=== PATIENT | female | born 1950 | race Two or more races ===

== ENCOUNTER 2019-01-01 10:31 | Day surgery (SDC) | payer MEDICARE, OTHER ==
[~2019-01-01] VITALS: Ht 172.7 cm; Wt 58.6 kg
[~2019-01-01 10:31] MED LIST: CLARITIN10 MG; THYR60; TRAZ50
[2019-01-01] MEDS ORDERED: LEVSOD100 (11:12)
[2019-01-01] MEDS ORDERED: PROG100 (11:12)
[2019-01-01] MEDS ORDERED: ESTR2 (11:13)
--- NOTE | 2019-01-01 12:15 | NUR ---
01/01/19 1215 Isha Araya PT UPDATED ON THE DELAY. WARM BLANKET PROVIDED. CALL LIGHT IN REACH.
== END 2019-01-01 15:13 | disposition home or self-care (01) ==
LOC: ORSCSDS 10:31
PROVIDERS: Student in an Organized Health Care Education/Training Program
PROC: 0DBN8ZX Excision of Sigmoid Colon, Via Natural or Artificial Opening Endoscopic, Diagnostic (ICD-10-PCS; principal; 2019-01-01 12:00)
PROC: 0DBK8ZX Excision of Ascending Colon, Via Natural or Artificial Opening Endoscopic, Diagnostic (ICD-10-PCS; principal; 2019-01-01 12:00)
PROC: 0DBP8ZX Excision of Rectum, Via Natural or Artificial Opening Endoscopic, Diagnostic (ICD-10-PCS; principal; 2019-01-01 12:00)
DX: K92.1 Melena (principal); D12.2 Benign neoplasm of ascending colon; D12.4 Benign neoplasm of descending colon; D12.5 Benign neoplasm of sigmoid colon; K62.1 Rectal polyp; K64.8 Other hemorrhoids; K64.4 Residual hemorrhoidal skin tags; R94.6 Abnormal results of thyroid function studies; Z79.899 Other long term (current) drug therapy
CPT/HCPCS: 88305; J2704; J7120

== ENCOUNTER 2019-01-02 21:44 | Observation (INO) | payer MEDICARE, OTHER ==
[~2019-01-02] VITALS: Ht 149.9 cm; Wt 60.4 kg
[~2019-01-02 21:44] MED LIST changes: +ESTR2; +LEVSOD100; +PROG100
[2019-01-02 22:44] LABS: BASOPHILS ABSOLUTE AUTO 0.04 K/mm3 (0.00-0.23); BASOPHILS PERCENT AUTO 0 % (0-2); EOSINOPHILS ABSOLUTE AUTO 0.16 K/mm3 (0.00-0.68); EOSINOPHILS PERCENT AUTO 1 % (0-6); Hemoglobin 14.1 g/dL (11.5-16.0); IMMATURE GRAN ABSOLUTE AUTO 0.05 K/mm3 (0.00-0.10); IMMATURE GRAN PERCENT AUTO 0 % (0-1); LYMPHOCYTES ABSOLUTE AUTO 1.77 K/mm3 (0.84-5.20); LYMPHOCYTES PERCENT AUTO 15 % (21-46); MONOCYTES PERCENT AUTO 8 % (4-13); Mean Corpuscular HGB 30.2 pg (26.0-34.0); Mean Corpuscular HGB Conc 33.6 g/dL (31.5-36.5); Mean Corpuscular Volume 90 fL (80-100); Mean Platelet Volume 10.5 fL (9.1-12.4); NEUTROPHILS ABSOLUTE AUTO 8.83 K/mm3 (1.96-9.15); NEUTROPHILS PERCENT AUTO 75 % (41-73); Platelet Count 296 K/mm3 (150-400); RDW Coefficient Variation 12.2 % (11.7-14.2); RDW Standard Deviation 39.9 fL (35.1-46.3); Red Blood Cell Count 4.67 M/mm3 (3.80-5.20); White Blood Cell Count 11.75 K/mm3 (4.00-11.30)
[2019-01-02 22:56] LABS: Alanine Aminotransfer (ALT/SGP 29 U/L (12-78); Albumin, Blood 3.9 g/dL (3.4-5.0); Alk Phos 54 U/L (50-136); Anion Gap 8 mmol/L (6-16); Aspartate Aminotrans (AST/SGOT 28 U/L (12-37); Bilirubin, Total 0.5 mg/dL (0.1-1.0); Blood Urea Nitrogen 12 mg/dL (8-24); Bun/Creatinine Ratio 14.8 (12.0-20.0); CO2, Blood 25 mmol/L (21-32); Calcium, Blood 8.5 mg/dL (8.5-10.1); Chloride, Blood 104 mmol/L (98-108); Creatinine, Blood 0.81 mg/dL (0.40-1.00); Globulin, Blood 3.8 g/dL (2.2-4.0); Glomerular Filtration Rate >60 (60-); Glucose, Blood 90 mg/dL (70-99); Potassium, Blood 3.5 mmol/L (3.5-5.5); Sodium, Blood 137 mmol/L (136-145); Total Protein, Blood 7.7 g/dL (6.4-8.2)
[2019-01-03 04:58] LABS: BASOPHILS ABSOLUTE AUTO 0.03 K/mm3 (0.00-0.23); BASOPHILS PERCENT AUTO 0 % (0-2); EOSINOPHILS PERCENT AUTO 2 % (0-6); Hematocrit 40.6 % (33.0-51.0); Hemoglobin 13.2 g/dL (11.5-16.0); IMMATURE GRAN ABSOLUTE AUTO 0.03 K/mm3 (0.00-0.10); IMMATURE GRAN PERCENT AUTO 0 % (0-1); LYMPHOCYTES ABSOLUTE AUTO 1.56 K/mm3 (0.84-5.20); LYMPHOCYTES PERCENT AUTO 18 % (21-46); MONOCYTES ABSOLUTE AUTO 0.79 K/mm3 (0.16-1.47); MONOCYTES PERCENT AUTO 9 % (4-13); Mean Corpuscular HGB 29.3 pg (26.0-34.0); Mean Corpuscular HGB Conc 32.5 g/dL (31.5-36.5); Mean Corpuscular Volume 90 fL (80-100); Mean Platelet Volume 10.2 fL (9.1-12.4); NEUTROPHILS ABSOLUTE AUTO 6.31 K/mm3 (1.96-9.15); NEUTROPHILS PERCENT AUTO 71 % (41-73); Platelet Count 228 K/mm3 (150-400); RDW Coefficient Variation 12.3 % (11.7-14.2); RDW Standard Deviation 40.6 fL (35.1-46.3); White Blood Cell Count 8.92 K/mm3 (4.00-11.30)
[2019-01-03 05:27] LABS: Alanine Aminotransfer (ALT/SGP 26 U/L (12-78); Albumin, Blood 3.2 g/dL (3.4-5.0); Alk Phos 43 U/L (50-136); Anion Gap 8 mmol/L (6-16); Aspartate Aminotrans (AST/SGOT 25 U/L (12-37); Bilirubin, Total 0.8 mg/dL (0.1-1.0); Blood Urea Nitrogen 9 mg/dL (8-24); Bun/Creatinine Ratio 11.5 (12.0-20.0); CO2, Blood 25 mmol/L (21-32); Calcium, Blood 7.8 mg/dL (8.5-10.1); Chloride, Blood 107 mmol/L (98-108); Creatinine, Blood 0.78 mg/dL (0.40-1.00); Globulin, Blood 3.3 g/dL (2.2-4.0); Glomerular Filtration Rate >60 (60-); Glucose, Blood 88 mg/dL (70-99); Potassium, Blood 3.3 mmol/L (3.5-5.5); Sodium, Blood 140 mmol/L (136-145); Total Protein, Blood 6.5 g/dL (6.4-8.2)
--- NOTE | 2019-01-03 06:01 | NUR ---
SHIFT SUMMARY: PATIENT ARRIVED TO FLOOR VIA AROUND 0024, SHE INDEPENTANTLY TRANSFERED TO BED WITH MINIMAL ASSIST. SHE IS AOX3 PLEASANT AND COOPERATIVE. ADMITED FOR ABDOMINAL PAIN POST OP POLYP REMOVE DURING COLONSCOPY ON TUESDAY. SHE WENT HOME AFTER THE PROCEDURE AND BEGAN TO HAVE PAIN AND NAUSEA. SHE WAS DX WITH LESION OF THE BOWEL NO PERFERATION. NO BLOODY STOOLS. SHE GOT PAIN MEDS DOWN IN ER AND DID NOT ASK FOR ANY MORE DURING THE SHIFT. IV FLUIDS INFUSING WELL INTO THE FOREARM. ASSESSMENT WAS PRETTY BENIGN OTHER THEN THE ABDOMINAL PAIN. SHE SLEPT REST OF SHIFT WITH NO OTHER ACUTE CHANGES WILL REPORT TO DAY SHIFT RN.
[2019-01-03] MEDS ORDERED: CIPR500 PO (17:46)
[2019-01-03] MEDS ORDERED: METR500 PO (17:46)
--- NOTE | 2019-01-03 18:02 | NUR ---
SUMMARY PT DISCHARGED TO HOME, PT VERBALIZED UNDERSTANDING OF DISCHARGE ORDERS REGARDING DIET, MEDICATIONS AND FOLLOW UP, PT HAS BEEN ALERT AND ORIENTED AND INDEPENDENT IN THE ROOM, NPO EXCEPT FOR ICE CHIPS FOR MOST OF THE DAY, PLEASANT AND COOPERATIVE, PT DECLINED A WHEELCHAIR AND WAS ABLE TO AMBULATE SAFELY TO THE ELEVATOR WITH HER SPOUSE
== END 2019-01-03 18:22 | disposition home or self-care (01) ==
LOC: ER 21:44 → MEDS 21:45 → ENPENDDIS 01-03 17:30 → MEDS 01-03 18:22
PROVIDERS: Emergency Medicine; ADMIT Hospitalist
DX: R10.9 Unspecified abdominal pain (principal); R03.0 Elevated blood-pressure reading, without diagnosis of hypertension; E87.6 Hypokalemia; E03.9 Hypothyroidism, unspecified; N95.9 Unspecified menopausal and perimenopausal disorder; Z79.899 Other long term (current) drug therapy; Z79.890 Hormone replacement therapy; Z86.010 Personal history of colon polyps
CPT/HCPCS: 36415; 80053; 83690; 85025; 96365; 96375; 99284-25; J2270; J2543; J3010; J3480; J7030

== ENCOUNTER 2019-04-23 16:52 | Emergency (ER) | payer MEDICARE, OTHER ==
[~2019-04-23] VITALS: Ht 152.4 cm; Wt 59.0 kg
[~2019-04-23 16:52] MED LIST changes: +CIPR500 PO; +METR500 PO
[2019-04-23 17:44] LABS: BASOPHILS ABSOLUTE AUTO 0.02 K/mm3 (0.00-0.23); BASOPHILS PERCENT AUTO 0 % (0-2); EOSINOPHILS PERCENT AUTO 1 % (0-6); Hematocrit 43.9 % (33.0-51.0); Hemoglobin 14.5 g/dL (11.5-16.0); IMMATURE GRAN ABSOLUTE AUTO 0.02 K/mm3 (0.00-0.10); IMMATURE GRAN PERCENT AUTO 0 % (0-1); LYMPHOCYTES ABSOLUTE AUTO 1.55 K/mm3 (0.84-5.20); LYMPHOCYTES PERCENT AUTO 22 % (21-46); MONOCYTES ABSOLUTE AUTO 0.47 K/mm3 (0.16-1.47); MONOCYTES PERCENT AUTO 7 % (4-13); Mean Corpuscular HGB 29.7 pg (26.0-34.0); Mean Corpuscular Volume 90 fL (80-100); NEUTROPHILS ABSOLUTE AUTO 4.96 K/mm3 (1.96-9.15); NEUTROPHILS PERCENT AUTO 70 % (41-73); Platelet Count 301 K/mm3 (150-400); RDW Coefficient Variation 12.5 % (11.7-14.2); RDW Standard Deviation 41.1 fL (35.1-46.3); Red Blood Cell Count 4.89 M/mm3 (3.80-5.20); White Blood Cell Count 7.12 K/mm3 (4.00-11.30)
[2019-04-23 17:58] LABS: International Normalized Ratio 1.02; Prothrombin Time Results 10.8 Sec (9.7-11.5)
[2019-04-23 18:08] LABS: Alanine Aminotransfer (ALT/SGP 25 U/L (12-78); Albumin, Blood 3.8 g/dL (3.4-5.0); Albumin/Globulin Ratio 1.1 (0.8-1.8); Alk Phos 48 U/L (50-136); Anion Gap 3 mmol/L (6-16); Aspartate Aminotrans (AST/SGOT 22 U/L (12-37); Bilirubin, Total 0.3 mg/dL (0.1-1.0); Blood Urea Nitrogen 16 mg/dL (8-24); Bun/Creatinine Ratio 20.8 (12.0-20.0); CO2, Blood 29 mmol/L (21-32); Calcium, Blood 9.1 mg/dL (8.5-10.1); Chloride, Blood 103 mmol/L (98-108); Creatinine, Blood 0.77 mg/dL (0.40-1.00); Globulin, Blood 3.6 g/dL (2.2-4.0); Glomerular Filtration Rate >60 (60-); Glucose, Blood 115 mg/dL (70-99); Potassium, Blood 3.9 mmol/L (3.5-5.5); Sodium, Blood 135 mmol/L (136-145); Total Protein, Blood 7.4 g/dL (6.4-8.2)
== END 2019-04-23 19:13 | disposition home or self-care (01) ==
LOC: ER 16:52
PROVIDERS: Physician Assistant
DX: G45.9 Transient cerebral ischemic attack, unspecified (principal); Z79.899 Other long term (current) drug therapy
CPT/HCPCS: 36415; 70450; 80053; 82947; 85025; 85610; 93005; 93010; 99285-25

== ENCOUNTER 2019-07-05 11:06 | Day surgery (SDC) | payer MEDICARE, OTHER ==
[~2019-07-05] VITALS: Ht 152.4 cm; Wt 58.7 kg
--- NOTE | 2019-07-05 13:08 | NUR ---
07/05/19 5115 Kishore Alexandre UPDATED PT & SO ON DELAY. FRESH WARM BLANKET PROVIDED. PT AND SO STATE AN UNDERSTANDING. PT RESTING COMFORTABLY IN PRE OP, LIGHT DIMMED. CALL LIGHT WITHIN REACH.
== END 2019-07-05 15:23 | disposition home or self-care (01) ==
LOC: ORSCSDS 11:06
PROVIDERS: Student in an Organized Health Care Education/Training Program
PROC: 0DBM8ZX Excision of Descending Colon, Via Natural or Artificial Opening Endoscopic, Diagnostic (ICD-10-PCS; principal; 2019-07-05 12:45)
DX: Z12.11 Encounter for screening for malignant neoplasm of colon (principal); Z86.010 Personal history of colon polyps; D12.4 Benign neoplasm of descending colon; K64.8 Other hemorrhoids; K64.4 Residual hemorrhoidal skin tags; I10 Essential (primary) hypertension; Z79.899 Other long term (current) drug therapy
CPT/HCPCS: 88305; J2704; J7120

== ENCOUNTER 2022-12-20 07:30 | Day surgery (SDC) | payer MEDICARE, OTHER ==
[~2022-12-20] VITALS: Ht 152.4 cm; Wt 58.4 kg
[2022-12-20] MEDS ORDERED: Prinivil10 MG (07:54)
[2022-12-20 09:44] VITALS: BP 104/68
== END 2022-12-20 09:36 | disposition home or self-care (01) ==
LOC: ORSCSDS 07:30
PROVIDERS: Student in an Organized Health Care Education/Training Program
PROC: 0DBK8ZX Excision of Ascending Colon, Via Natural or Artificial Opening Endoscopic, Diagnostic (ICD-10-PCS; principal; 2022-12-20 08:45)
PROC: 0DBN8ZX Excision of Sigmoid Colon, Via Natural or Artificial Opening Endoscopic, Diagnostic (ICD-10-PCS; principal; 2022-12-20 08:45)
PROC: 0DBM8ZX Excision of Descending Colon, Via Natural or Artificial Opening Endoscopic, Diagnostic (ICD-10-PCS; principal; 2022-12-20 08:45)
PROC: 0DBP8ZX Excision of Rectum, Via Natural or Artificial Opening Endoscopic, Diagnostic (ICD-10-PCS; principal; 2022-12-20 08:45)
DX: Z12.11 Encounter for screening for malignant neoplasm of colon (principal); Z86.010 Personal history of colon polyps; D12.2 Benign neoplasm of ascending colon; K63.5 Polyp of colon; K62.1 Rectal polyp; K64.8 Other hemorrhoids; K64.4 Residual hemorrhoidal skin tags; I10 Essential (primary) hypertension; E03.9 Hypothyroidism, unspecified; Z79.899 Other long term (current) drug therapy
CPT/HCPCS: 88305; J2704; J7120